=== PATIENT | male | born 1965 | race Caucasian/White ===

== ENCOUNTER 2017-01-07 02:04 | Inpatient (IN) | payer OTHER ==
[~2017-01-07] VITALS: Ht 188 cm; Wt 165.1 kg
--- NOTE | 2017-01-07 07:32 | Admission Core Measures ---
Admission Meds I reviewed the following Meds: Current Medications Sig/Lb Start time Last Medication Dose Stop Time Status Admin Cefazolin Sodium 3,000 MG ONCE 01/07 NR (Kefzol-Ancef Inj) 01/07 2359 Heparin Sodium 5,000 UNIT ONCE 01/07 NR (Porcine) 01/07 235 Acute Coronary Syndrome Inclusion Criteria ACS Diagnosis No Inpatient Core Measures LDL Reminder: If No, please order W/I first 24hr of stay Congestive Heart Failure Inclusion Criteria CHF Diagnosis No Cerebrovascular accident Inclusion Criteria CVA/TIA Diagnosis No Inpatient Core Measures Bedside Swallow Eval Reminder: If BSE failed, place ST order Antithrombotic Reminder: Order Antithrombotic Medication by end of day 2 Antithrombotic Reminder: Document Reason Antithrombotic Not ordered by end of day 2 AFIB/Flutter Reminder: If Present, add to problem list AFIB/Flutter Reminder: Order Anticoag Medication for pts with AFIB/Flutter Atherosclerosis Reminder: If Present, add to problem list LDL Reminder: If No, please order W/I first 24hr of stay PT Order Reminder: If No, please order Venous thromboembolism Inpatient Core Measures VTE Risk Factors: Age > 40, Obesity, Surgery [facility] prophylaxis d/t No contraindications No VTE Pharm Prophylaxis d/t No contraindications Inclusion Criteria - Per Current guidelines, there needs to be overlap - treatment for the first 5 days of Warfarin therapy. - Parenteral Anticoagulation (IV or SC) needs to be - given along with Warfarin therapy. VTE Diagnosis No VTE Type NONE VTE Confirmed by (Test) NONE Problem List As ranked by this Provider includes Assessment & Plan 1. S/P laparoscopic sleeve gastrectomy HOME MEDS Home Med List No Known Home Medications
--- NOTE | 2017-01-07 10:00 | Operative Report ---
Operative/Inv Procedure Report Surgery Date: 01/07/17 Name of Procedure: Laparoscopic Sleeve Gastrectomy, Laparoscopic Cholecystectomy Pre-Operative Diagnosis: Morbid Obesity BMI 46, Cholelithiasis/Cholecystitis Post-Operative Diagnosis: Same Estimated Blood Loss: less than 50ml Surgeon/Cafe Site Attendant: GREER TOPETE DO Anesthesia: general endotracheal tube IV Fluids: 2000 cc Drains: None Specimens: Stomach, Gallbladder Complications: None Condition: Stable Operative Indication: This is a 51-year-old male that presented to the office for workup for bariatric surgery. After appropriate workup was completed I discussed with the patient the band, the sleeve, and the gastric bypass. The patient chose to undergo a sleeve gastrectomy. All risks including but not limited to bleeding, infection, leak, stricture, injury to surrounding bowel/esophagus/stomach/liver/spleen, long-term reflux, DVT/PE, and mortality of 06/999 patients were discussed in detail. The patient was also found to have cholelithiasis on his abdominal ultrasound, so a laparoscopic cholecystectomy was discussed in detail as well to be done at the same time as the sleeve. All risks including but not limited to bleeding, infection, bile leak, and injury to surrounding duct/bowel were discussed in detail. The patient understood everything and decided to proceed. Operative/Procedure Note Note: The patient was brought to the operating room and placed on the operating room table in supine position. Venodyne stockings were placed and adequate general endotracheal anesthesia was obtained. The patient was prepped and draped in standard surgical fashion. Began the procedure by making a 2 cm transverse incision supraumbilically and slightly to the left of the midline. Then using a 12 mm clear Visiport and a 10 mm 0 laparoscope, the abdominal cavity was accessed. Great care was taken to go through the anterior rectus sheath, the posterior rectus sheath, and through the peritoneum. Once we entered the peritoneum the abdominal cavity was insufflated to 15 mmHg. Upon initial examination no obvious gross pathology was seen. Accessory trocars were placed, 5 mm in the epigastrium for the Zana liver retractor. The retractor was inserted and the liver was retracted anteriorly exposing the hiatus, no hiatal hernia was seen. 5 mm ports were placed in the right and left upper quadrant, a 5 mm left lateral port, and a 15 mm right lateral port. Began the procedure by mobilizing the greater curvature of the stomach approximately 7 cm from the pylorus. Once the retrogastric space was reached the whole greater curvature was mobilized maintaining hemostasis using Harmonic scalpel. Full hiatal dissection was performed, no hiatal hernia was seen. Posterior adhesions were taken down using Harmonic scalpel as well. Once the stomach was adequately mobilized a 38 Swedish bougie was inserted and placed along the lesser curvature of the stomach. Once the bougie was in the appropriate position will began creating our sleeve, two 60 mm black staple loads with seamguard followed by three 60 mm purple staple loads with seamguard as well and finshed with a 45 mm purple plain load. Great care was taken to leave ample room at the incisura angularis, to prevent any twisting or kinking of the sleeve, to stay lateral to the esophagogastric fat pad, and to do a full fundal excision. At the completion of the staple line the staple line was examined, it appeared intact and no obvious bleeding was noted. The bougie was removed, the sleeve was lying nicely without any twisting or kinking. The resected stomach was removed through the right lateral port site. The port and the left upper quadrant were irrigated until clear. We then brought our attention to the RUQ and did note a distended gallbladder in the right upper quadrant. Accessory trocar was placed, a 5 mm, in the right upper quadrant (in the anterior axillary line, 2 fingerbreadths below the costal margin). The gallbladder was grasped with the lateralmost trocar and retracted up over the liver. Using the other 2 accessory trocars the infundibulum was grasped and the peritoneum was lysed using blunt dissection and using harmonic scalpel. The cystic duct and cystic artery were visualized. The common bile duct was visualized and it was away from our area of dissection. The cystic duct and artery were skeletonized and divided between clips, 3 clips to stay and one clip on the gallbladder side for the duct and the artery was divided using harmonic scalpel. The gallbladder was dissected off the liver bed using harmonic scalpel maintaining hemostasis. Prior to completely removing the gallbladder off the liver bed we examined the area of dissection no obvious bile leak or bleeding was noted, the clips appeared to be in good position. The gallbladder was completely detached from the liver bed. A 10 mm Endobag was introduced through the 15 mm trocar site. The gallbladder was placed in the bag and removed through the site. The abdomen was reinsufflated. We our area of dissection, no obvious bile leak or bleeding was noted. The right upper quadrant was irrigated until clear. All ports were removed under direct visualization, no obvious bleeding was noted. All ports were removed under direct visualization no obvious bleeding was noted. The 15 mm port site fascia was closed using 0 Vicryl suture. The skin was closed using 4-0 Monocryl. Steri-Strips and dressings were placed. The patient was successfully extubated and transferred to the recovery room in stable condition. The patient tolerated the procedure well with no complications. Findings: No hiatal hernia, distended gallbladder, 38 Fr bougie CC: SAMANTHA AGUILERA,BIRGIT
[2017-01-07 12:10] VITALS: BP 128/80
--- NOTE | 2017-01-07 13:02 | PN- Bariatrics ---
Subjective Subjective: The patient was seen this afternoon postoperatively. He reports having some moderate pain but was just recently medicated. He denied any nausea and had no other complaints of current time. Objective Vital Signs and I&Os Vital Signs Date Time Temp Pulse Resp B/P B/P Pulse O2 O2 Flow FiO2 Mean Ox Delivery Rate 01/07 1210 97.7 73 16 128/80 94 Room Air 01/07 1210 94 Room Air Intake & Output 01/07 1600 01/07 0800 01/07 0000 01/06 1600 01/06 0800 01/06 0000 Intake Total Output Total Balance Patient 364 lb Weight Weight Reported by Patient Measurement Method Physical Exam: Gen.: Alert and in no obvious distress Skin: Warm and dry Cardiac: S1-S2 regular Pulmonary: Bilateral breath sounds were equal and decreased at bases Abdomen: Soft, obese, appropriate incisional tenderness, bowel sounds positive. Surgical dressings her blood tinged but otherwise intact. Extremities: Bilateral lower extremities are warm without calf tenderness or significant edema. Assessment/Plan Assessment/Plan Assessment: 51-year-old male status post laparoscopic sleeve gastrectomy and cholecystectomy. Postoperatively the patient is progressing as expected, his pain is adequately managed, and he is tolerating a stage I diet without nausea. Plan: stage I diet until midnight then the patient be nothing by mouth for an upper GI in the morning Out of bed and ambulate Strict I's and O's Monitor for postoperative void GI and DVT prophylaxis 2 doses of postoperative prophylactic antibiotics Follow-up morning laboratory studies Continue current pain regiment Incentive spirometry Core Measures/Miscellaneous Venous Thromboembolism VTE Risk Factors: Age > 40, Obesity, Surgery VTE Contraindications: No Contraindications VTE Diagnosis: No VTE Type: NONE VTE Confirmed by (Test): NONE Beta Robert Is Beta Robert a Home Med? No Antibiotics Is Patient on Antibiotics? Yes If Yes: prophylaxis
--- NOTE | 2017-01-07 13:04 | Surg Short-stay <48hrs Dis Sum ---
Visit Information Visit Dates Admission Date: 01/07/17 Discharge Date: 01/09/17 Surgical Short Stay DC Summary Admission Diagnosis: Morbid Obesity BMI 46, Cholelithiasis/Cholecystitis Final Diagnosis: Same as above s/p Surgery Date: 01/07/17 Name of Procedure: Laparoscopic Sleeve Gastrectomy, Laparoscopic Cholecystectomy Procedure(s): Surgery Date: 01/07/17 Name of Procedure: Laparoscopic Sleeve Gastrectomy, Laparoscopic Cholecystectomy Summary/Significant Findings: The patient was admitted on 01/07/2017. He was brought to the operating theater where he underwent a laparoscopic sleeve gastrectomy and cholecystectomy. Postoperative the patient progressed as expected, his pain was under adequate control, and he tolerated a bariatric stage I diet without nausea. The patient was discharged uneventful hospital course. No lovenox indicated according to the pre-operative risk assessment. Condition at Discharge: Stable Discharge Disposition: home or self care Discharge instructions provided to patient/family: Yes Post discharge follow-up plan: Call the office to be seen in one week
[2017-01-07] MEDS ORDERED: PROTONIX40 M3 PO (13:05)
[2017-01-07] MEDS ORDERED: HYCET 7.5 MG-3473 ML PO ×2 (13:05→13:13)
--- NOTE | 2017-01-07 13:12 | Patient Discharge Instructions ---
Discharge Instructions General Discharge Information You were seen/treated for: Morbid obesity and gallstones You had these procedures: Laparoscopic sleeve gastrectomy and cholecystectomy Watch for these problems: Significantly increased pain, nausea, or temperatures over 101. Increased redness or drainage from incisions Increased difficulty breathing or lower extremity pain No bath, but you may shower: Yes Other wound care: When you get home he may remove dressings relieving white strips intact until seen by your surgeon Shower regularly but no baths or swimming Special Instructions: See preprinted information packet Ambulate frequently May use Gas-X for gas pain Diet Recommended Diet: Bariatric Activity Activity Self Limited: Yes Pounds, do NOT lift more than: 10 Other activity limits: Do not drive for operate heavy machinery until off all pain medications and okayed by your surgeon Acute Coronary Syndrome Inclusion Criteria At DC or during hospital stay patient has or had the following: ACS DIAGNOSIS No Discharge Core Measures Meds if any: Prescribed or Continued at Discharge Meds if any: NOT Prescribed or Continued at Discharge Congestive Heart Failure Inclusion Criteria At DC or during hospital stay patient has or had the following: CHF DIAGNOSIS No Discharge Core Measures Meds if any: Prescribed or Continued at Discharge Meds if any: NOT Prescribed or Continued at Discharge Cerebrovascular accident Inclusion Criteria At DC or during hospital stay patient has or had the following: CVA/TIA Diagnosis No Discharge Core Measures Meds if any: Prescribed or Continued at Discharge Meds if any: NOT Prescribed or Continued at Discharge Venous thromboembolism Inclusion Criteria VTE Diagnosis No VTE Type NONE VTE Confirmed by (Test) NONE Discharge Core Measures - Per Current guidelines, there needs to be overlap - treatment for the first 5 days of Warfarin therapy. - If discharged on Warfarin prior to 5 days of - overlap therapy, the patient will need to be - assessed for post discharge needs including - *Post discharge parental anticoagulation - *Warfarin and/or parental anticoagulation education - *Follow up date to check INR post discharge At least 5 days overlap therapy as Inpatient No Meds if any: Prescribed or Continued at Discharge Note: Overlap Therapy is Warfarin and Anticoagulant Meds if any: NOT Prescribed or Continued at Discharge
[2017-01-07 14:48] VITALS: BP 154/52
[2017-01-07 20:00] VITALS: BP 138/50
[2017-01-07 22:18] VITALS: BP 122/50
[2017-01-08 06:39] VITALS: BP 140/50
--- NOTE | 2017-01-08 09:23 | PN- Bariatrics ---
Subjective Subjective: No complaints. Had a few episodes of nausea, but currently not nauseous. Awaiting upper gi study. Walking without difficulty. No dizziness. No shortness of breath. No chest pains. Voiding without difficulty. No flatus or bm yet. Objective Vital Signs and I&Os Vital Signs Date Time Temp Pulse Resp B/P B/P Pulse O2 O2 Flow FiO2 Mean Ox Delivery Rate 01/08 0800 94 Room Air Room Air 01/08 0639 98.2 65 20 140/50 96 Room Air 01/07 2218 99.1 87 20 122/50 96 Room Air 01/07 2000 96 Room Air 01/08 2000 98.1 85 20 138/50 94 Room Air 01/07 1600 94 Room Air 01/07 1448 97.6 77 20 154/52 94 Room Air 01/07 1445 Room Air 01/07 1210 97.7 73 16 128/80 94 Room Air 01/07 1210 94 Room Air Intake & Output 01/08 1600 01/08 0800 01/08 0000 01/07 1600 01/07 0800 01/07 0000 Intake Total 1495 635 Output Total 200 800 450 Balance -200 695 185 Intake, IV 1000 575 Intake, Oral 495 60 Output, Urine 200 800 450 Patient 364 lb Weight Weight Reported by Patient Measurement Method Physical Exam: General - alert & oriented x 3. comfortable. no acute distress. Lungs - clear bilaterally. no w/r/r. Cardiac - s1s2. reg. Abdomen - soft. dressings stained but intact. no drains. few hypoactive bowel sounds appreciated. Extremities - warm bilaterally. no c/c/e. calves soft and nontender b/l. Current Medications: Current Medications Sig/Lb Start time Last Medication Dose Route Stop Time Status Admin Acetaminophen/ 15 ML Q6P PRN 01/07 1215 AC 01/07 Hydrocodone Bitart PO 2133 Cefazolin Sodium 1,000 MG IQ8 01/07 1600 DC 01/08 IV 01/08 0001 0043 Cefazolin Sodium 3,000 MG ONCE 01/07 0000 DC IV 01/07 2359 Heparin Sodium 5,000 UNIT Q8 /12 1400 AC 01/08 (Porcine) SC 0618 Heparin Sodium 5,000 UNIT ONCE 01/07 0000 DC (Porcine) SC 01/07 2359 Hydromorphone HCl 1 MG Q4P PRN 01/07 1215 AC IV Hyoscyamine 0.125 MG Q4 01/07 1400 AC 01/08 SL 0617 Ketorolac 30 MG Q6P PRN 01/07 1215 AC Tromethamine IV 01/10 1214 Ondansetron HCl 4 MG Q6P PRN 01/07 1215 AC 01/07 IV 1347 Pantoprazole Sodium 40 MG DAILY 01/08 1000 AC IV Patient Medication 1 ED .STK-MED ONE 01/07 1431 DC Teaching ED 01/07 1432 Potassium Chloride 20 MEQ .Q8H 01/07 1215 AC 01/08 Dextrose/Sodium 1,000 ML IV 0250 Chloride Simethicone 40 MG Q6P PRN 01/07 1215 AC 01/07 PO 1833 Assessment/Plan Assessment/Plan This 51 year old white male with hx morbid obesity (bmi 46), cholelithiasis/ cholecystitis, is POD#1 s/p laparoscopic sleeve gastrectomy, cholecystectomy currently npo awaiting upper gi study this morning likely resume stage 1 bariatric diet after ugi study complete pain controlled f/u labs hep sc - dvt ppx protonix - gi ppx oob/ambulation possible d/c home this afternoon if tolerating stage 1 diet will d/w Core Measures/Miscellaneous Venous Thromboembolism VTE Risk Factors: Age > 40, Obesity, Surgery VTE Contraindications: No Contraindications VTE Diagnosis: No VTE Type: NONE VTE Confirmed by (Test): NONE Beta Robert Is Beta Robert a Home Med? No Antibiotics Is Patient on Antibiotics? Yes If Yes: prophylaxis
--- NOTE | 2017-01-08 10:05 | RADIOLOGY REPORT ---
EXAMINATION: FL UPPER GI SERIES CLINICAL INFORMATION: 51-year-old male status post sleeve gastrectomy. COMPARISON: None TECHNIQUE: A single contrast upper GI series with fluoroscopy and spot imaging was performed. The patient ingested 30 mL of Gastroview contrast material without difficulty and was evaluated in the upright and recumbent positions. FLUOROSCOPY TIME: 15 seconds NUMBER OF IMAGES: 7. FINDINGS: There is no delay in passage of Gastroview contrast through the esophagus, stomach and into the duodenum. The stomach has a relatively narrow configuration compatible with history of sleeve gastrectomy. There is no contrast leakage from the stomach. Cholecystectomy clips are present within the right upper quadrant of the abdomen. IMPRESSION: Status post sleeve gastrectomy without evidence of postoperative contrast leakage from the stomach.
[2017-01-08] MEDS ORDERED: HYCET 7.5 MG-3473 ML PO (10:20)
[2017-01-08] MEDS ORDERED: PROTONIX40 M3 PO (10:20)
[2017-01-08 16:54] VITALS: BP 162/82
[2017-01-08] MEDS ORDERED: ZOFRAN ODT4 M1 SL (17:37)
--- NOTE | 2017-01-08 18:45 | NUR ---
1545 PATIENT REPORTED NAUSEA WITH EMESIS, LIQUID/BILE TINGED EMESIS NOTED. IV ZOFRAN GIVEN ORDERED, NAHOMY SORIANO NOTIFIED. MONITORING FOR CONTINUED NAUSEA/EMESIS PER PA, TO EVALUATE FOR POSSIBLE DISCHARGE IN THE EVENING. 1745 PATIENT DENIES NAUSEA, SLEEPING AT THIS TIME. VSS, HYPERTENSIVE CHARTED, PA AWARE. 1900 PATIENT EFVALUATED FOR DISCHARGE, PAIN 2/10, DENIES NAUSEA, BP 156/88, 94% ON RA, HR 72, TEMP 99.8, RR 18. NAHOMY SHIPMAN NOTIFIED OF TEMP AN BP. PA STATED TO SEE PATIENT FOR EVALLUATION.
[2017-01-08 19:00] VITALS: BP 156/88
[2017-01-08 20:39] VITALS: BP 142/80
[2017-01-08 22:25] VITALS: BP 148/82
[2017-01-09 06:16] VITALS: BP 140/62
--- NOTE | 2017-01-09 08:39 | PN- Bariatrics ---
Subjective Subjective: POD #2 s/p lap sleeve/cholecystectomy. Was nauseated yesterday afternoon/ evening and IVF continued. Nausea now resolved. NO complaints of CP/SOB, N/V, F/C. Ambulating well. Voiding spontaneously. Objective Vital Signs and I&Os Vital Signs Date Time Temp Pulse Resp B/P B/P Pulse O2 O2 Flow FiO2 Mean Ox Delivery Rate 01/09 0616 98.5 97 20 140/62 97 01/09 0600 97 Room Air 01/08 2225 98.2 68 20 148/82 99 Room Air 01/08 2200 99 Room Air 01/08 2039 98.9 67 18 142/80 99 Room Air 01/08 1900 99.8 72 18 156/88 94 Room Air Room Air 01/08 1654 98.4 61 20 162/82 95 Room Air 01/08 1600 94 Room Air Room Air Intake & Output 01/09 1600 01/09 0800 01/09 0000 01/08 1600 01/08 0800 01/08 0000 Intake Total 987 659 2476 1000 1495 Output Total 200 800 Balance 191 580 1498 800 695 Intake, IV 600 75 450 1000 1000 Intake, Oral 120 600 495 Output, Urine 200 800 Physical Exam: Gen: AAOx3 in NAD Cor: S1+S2+ Lungs: CTA tiffanie Abd: soft, NT, ND, +BS x4. Incisional dressings removed. Steristrips intact. Mild surrounding ecchymosis to incision. No erythema or drainage noted. Ext: no edema or calf tenderness to tiffanie lower extremities. Current Medications: Current Medications Sig/Lb Start time Last Medication Dose Route Stop Time Status Admin Acetaminophen/ 15 ML Q6P PRN 01/07 1215 AC 01/08 Hydrocodone Bitart PO 2139 Heparin Sodium 5,000 UNIT Q8 01/07 1400 AC 01/09 (Porcine) SC 0530 Hydromorphone HCl 1 MG Q4P PRN 01/07 1215 AC IV Hyoscyamine 0.125 MG Q4 01/07 1400 AC 01/09 SL 0530 Ketorolac 30 MG Q6P PRN 01/07 1215 AC Tromethamine IV 01/10 1214 Ondansetron HCl 4 MG Q6P PRN 01/07 1215 AC 01/08 IV 1553 Pantoprazole Sodium 40 MG DAILY 01/08 1000 AC 01/08 IV 1033 Potassium Chloride 20 MEQ .[id number] 01/07 1215 DC 01/09 Dextrose/Sodium 1,000 ML IV 0304 Chloride Simethicone 40 MG Q6P PRN 01/07 1215 AC 01/08 PO 2143 Results Last 48 Hours of Labs: Laboratory Tests 01/08 0600 Chemistry Sodium Cancelled Potassium Cancelled Chloride Cancelled Carbon Dioxide Cancelled Anion Gap Cancelled BUN Cancelled Creatinine Cancelled BUN/Creatinine Ratio Cancelled Hematology CBC w Diff Cancelled WBC Cancelled RBC Cancelled Hgb Cancelled Hct Cancelled MCV Cancelled MCH Cancelled RDW Cancelled Plt Count Cancelled MPV Cancelled PUBS MCHC Cancelled Assessment/Plan Assessment/Plan A: POD #2 s/p lap sleeve/cholecystectomy; AVSS. Plan: D/C home with outpatient follow up with Dr. Beck. Core Measures/Miscellaneous Venous Thromboembolism VTE Risk Factors: Age > 40, Obesity, Surgery VTE Contraindications: No Contraindications VTE Diagnosis: No VTE Type: NONE VTE Confirmed by (Test): NONE Beta Robert Is Beta Robert a Home Med? No Antibiotics Is Patient on Antibiotics? Yes If Yes: prophylaxis
== END 2017-01-09 11:18 | DRG 620 ==
LOC: SDA 02:04 → ENRESERV 10:40 → ENTRNSPT 11:33 → CMPTRNSPT 11:44 → 2NB 11:49 → ENPENDDIS 01-09 08:39 → 2NB 01-09 11:18
PROVIDERS: ADMIT Surgery
PROC: 0DB64Z3 Excision of Stomach, Percutaneous Endoscopic Approach, Vertical (ICD-10-PCS; principal; 2017-01-07)
PROC: 0FT40ZZ Resection of Gallbladder, Open Approach (ICD-10-PCS; 2017-01-07)
PROC: 0FJ44ZZ Inspection of Gallbladder, Percutaneous Endoscopic Approach (ICD-10-PCS; 2017-01-07)
DX: E66.01 Morbid (severe) obesity due to excess calories (principal); K80.10 Calculus of gallbladder with chronic cholecystitis without obstruction; Z68.42 Body mass index [BMI] 45.0-49.9, adult
CPT/HCPCS: 2NBSP; 74240; 82436; J0690; J1644; J1885; J2405; J7042; S5012